=== PATIENT | female | born 1955 | race Two or more races ===

== ENCOUNTER 2019-10-28 07:44 | Emergency (ER) | payer MEDICARE, MEDICAID ==
[~2019-10-28] VITALS: Ht 165.1 cm; Wt 79.4 kg
[2019-10-28 08:16] VITALS: BP 115/70
[2019-10-28 08:44] LABS: Urine WBC None Seen /hpf (0 - 5)
[2019-10-28 08:55] LABS: Urine Bacteria MOD /hpf (None Seen); Urine Blood Negative /uL (Negative); Urine Mucus FEW (None Seen); Urine Specific Gravity 1.012 (1.001-1.035)
[2019-10-28] MEDS ORDERED: HYDROCO/APAP (09:26)
[2019-10-28] MEDS ORDERED: LEVO50TA7 (09:26)
[2019-10-28] MEDS ORDERED: ZOLP10TA6 (09:26)
[2019-10-28] MEDS ORDERED: PREG150C62 (09:26)
[2019-10-28] MEDS ORDERED: OMEP-260 (09:26)
[2019-10-28] MEDS ORDERED: OXY10CRT (09:26)
[2019-10-28] MEDS ORDERED: LISI10TA6 (09:26)
[2019-10-28] MEDS ORDERED: HYDROcodone-ACET 5/325MG TAB PO ONE (09:30)
== END 2019-10-28 10:35 | disposition home or self-care (01) ==
LOC: ER 07:44 → EDBD 07:44 → ER 10:35
DX: S93.401A Sprain of unspecified ligament of right ankle, initial encounter (principal); S90.31XA Contusion of right foot, initial encounter; W18.39XA Other fall on same level, initial encounter; Y93.89 Activity, other specified; Y92.098 Other place in other non-institutional residence as the place of occurrence of the external cause; Y99.8 Other external cause status
CPT/HCPCS: 73610; 73630; 81001